=== PATIENT | male | born 1995 | race Caucasian/White ===

== ENCOUNTER 2018-10-15 22:30 | Emergency (ER) | payer OTHER ==
[~2018-10-15] VITALS: Ht 190.5 cm; Wt 95.3 kg
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
[2018-10-15 22:56] VITALS: BP 145/84
[2018-10-15] MEDS ORDERED: KETOROLAC 60 MG/2 ML VIAL. IM ONE (23:30)
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
== END 2018-10-16 00:15 | disposition home or self-care (01) ==
LOC: ER 22:30
DX: S46.001A Unspecified injury of muscle(s) and tendon(s) of the rotator cuff of right shoulder, initial encounter (principal); Y08.89XA Assault by other specified means, initial encounter; Y93.89 Activity, other specified; Y92.149 Unspecified place in prison as the place of occurrence of the external cause; Y99.8 Other external cause status
CPT/HCPCS: 71046; 73030; 96372; 99284; J1885